=== PATIENT | male | born 1980 | race Two or more races ===

== ENCOUNTER 2019-03-28 10:59 | Emergency (ER) | payer BC ==
[~2019-03-28] VITALS: Ht 172.7 cm; Wt 81.8 kg
[2019-03-28] MEDS ORDERED: proparacaine 0.5% ophthalmic drops 15ml EACHEYE ONE (13:20)
[2019-03-28] MEDS ORDERED: ERYT1OIN6 EACHEYE (13:43)
[2019-03-28 13:57] VITALS: BP 133/87
== END 2019-03-28 13:51 | disposition home or self-care (01) ==
LOC: ER 11:00
DX: T15.82XA Foreign body in other and multiple parts of external eye, left eye, initial encounter (principal); X58.XXXA Exposure to other specified factors, initial encounter; Y93.89 Activity, other specified; Y92.89 Other specified places as the place of occurrence of the external cause; Y99.9 Unspecified external cause status
CPT/HCPCS: 65205; 65222; 99283; 99284